=== PATIENT | female | born 1990 ===

== ENCOUNTER 2017-03-27 17:19 | Emergency (ER) | payer OTHER, MEDICAID ==
[2017-03-27 17:32] VITALS: RESP 20; TEMP 98.1
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
[2017-03-27 18:28] VITALS: BP 128/72; PULSE 82; O2SAT 99
--- NOTE | 2017-03-27 18:50 | RAD ---
PROCEDURE: Left Hand Radiographs. HISTORY: Posttraumatic left thumb pain. COMPARISON: None. FINDINGS: BONES: Normal. No fracture. JOINTS: Normal. No osteoarthritic changes. SOFT TISSUES: Normal. OTHER FINDINGS: None. IMPRESSION: No acute findings related to/accounting for the clinical presentation. Concordant results with the preliminary interpretation rendered by the emergency department physician procedure.
== END 2017-03-27 18:27 | disposition home or self-care (01) ==
LOC: C.ER 17:19
DX: M79.642 Pain in left hand (principal); V49.40XA Driver injured in collision with unspecified motor vehicles in traffic accident, initial encounter

== ENCOUNTER 2017-09-01 10:21 | Emergency (ER) | payer MEDICAID, OTHER ==
[2017-09-01 11:01] VITALS: BP 120/79; PULSE 103; RESP 16; TEMP 98.6; O2SAT 98
--- NOTE | 2017-09-01 11:34 | C.PDOC ---
History Of Present Illness The patient is a 27yo female, presents to the ED for evaluation of a sore throat which she reports as waking up with this morning. Patient states her uvula "feels weird" and states she was around a lot of children yesterday and believes she might have caught something. She denies any associated fever, cough , sputum. She denies taking any medications for her symptoms. Of note, patient presents to the ED accompanied by her children who also present with similar complaints. Time Seen by Provider: 09/01/17 11:04 Chief Complaint (Nursing): ENT Problem History Per: Patient History/Exam Limitations: no limitations Onset/Duration Of Symptoms: Days Location Of Pain: Throat Sick Contacts (Context): Family Member(s) Associated Symptoms: Sore Throat. denies: Fever, Cough, Sputum Past Medical History Reviewed: Historical Data, Nursing Documentation, Vital Signs Vital Signs: Last Vital Signs Temp 98.6 F 09/01/17 10:23 Pulse 103 H 09/01/17 10:23 Resp 16 09/01/17 10:23 BP 120/79 09/01/17 10:23 Pulse Ox 98 09/01/17 13:12 - Medical History PMH: No Chronic Diseases Surgical History: No Surg Hx Family History: States: No Known Family Hx - Social History Hx Alcohol Use: No Hx Substance Use: No - Immunization History Hx Tetanus Toxoid Vaccination: No Hx Influenza Vaccination: No Review Of Systems Constitutional: Negative for: Fever ENT: Positive for: Throat Pain, Throat Swelling Respiratory: Negative for: Cough, Shortness of Breath, Sputum Physical Exam - Physical Exam Appears: Toxic, No Acute Distress Skin: Warm, Dry Eye(s): bilateral: Normal Inspection Ear(s): Bilateral: Normal Oral Mucosa: Moist Throat: Erythema (pharyngeal erythema), Exudate (small patch exudates present in bilateral tonsils), Other (edematous and erythematous uvula noted) Lymphatic: Adenopathy (submandibular) Cardiovascular: Rhythm Regular Respiratory: Normal Breath Sounds, No Wheezing ED Course And Treatment O2 Sat by Pulse Oximetry: 98 (RA) Pulse Ox Interpretation: Normal Medical Decision Making Medical Decision Making: Impression: 27yo female w/ complaints of sore throat Plan: -- Rapid strep -- Tylenol 975 mg PO 1224 pm rapid strep neg, however. pt has uvulitis with some exudate on tonsils , will treat with antibiotics, get upreg and give decadron im 1235 pm. pt declines decadron. 100 pm pt left prior to receiving discharge paperwork and rx; unable to find contact number for pt, spoke wiht sister to tell pt to return to ER for discharge paperwork and prescriptions. Disposition Counseled Patient/Family Regarding: Studies Performed, Diagnosis, Need For Followup, Rx Given - Disposition Referrals: [facility] [Outside] Disposition: HOME/ ROUTINE Disposition Time: 12:24 Condition: STABLE Additional Instructions: Gargle with warm salty water 2-3 times a day. Take antibiotics and acetaminophen as prescribed. Recommend soft foods. Follow up with PMD or in medical clinic in a few days. Return to ER for any worsening symptoms. Prescriptions: Acetaminophen 650 mg PO Q6 #30 tablet Amoxicillin [Amoxil 500 mg Cap] 500 mg PO BID #14 cap Instructions: Uvulitis (ED) Forms: [facility] (Wolof), General Discharge Instructions - Clinical Impression Clinical Impression: Uvulitis - Jennyibe Statement The provider has reviewed the documentation as recorded by the Kareem Moore All medical record entries made by the Kareem were at my direction and personally dictated by me. I have reviewed the chart and agree that the record accurately reflects my personal performance of the history, physical exam, medical decision making, and the department course for this patient. I have also personally directed, reviewed, and agree with the discharge instructions and disposition.
== END 2017-09-01 13:07 | disposition home or self-care (01) ==
LOC: C.ER 10:21
DX: K12.2 Cellulitis and abscess of mouth (principal)